=== PATIENT | male | born 1955 | race American Indian/Alaskan Native ===

== ENCOUNTER 2020-10-18 00:42 | Observation (INO) | payer MEDICARE ==
--- NOTE | 2020-10-18 01:32 | Emergency Department Report ---
ED General Adult HPI - General Chief complaint: Dyspnea/Respdistress Stated complaint: FLU SYMTOMS PUI?: Yes Time Seen by Provider: 10/18/20 01:11 Source: patient, EMS Mode of arrival: Stretcher Limitations: No Limitations - History of Present Illness Initial comments: Patient is a 64-year-old male that presents emergency room with complaints of fever, cough, fatigue. Patient states his symptoms started 2 days ago. Patient dates his symptoms are worsening. Patient denies shortness of breath and chest pain. Patient denies nausea vomiting and diarrhea. Patient states he has not been tested for Covid 19. Patient denies recent travel. Patient denies recent international travel. Patient denies exposure to the novel coronavirus. Patient denies sick contacts. Patient denies diarrhea. Patient denies coming in contact with anybody with symptoms of the novel coronavirus. -: Sudden Consistency: constant Improves with: rest Worsens with: movement Associated Symptoms: confusion, cough, fever/chills, malaise. denies: headaches, loss of appetite, nausea/vomiting, rash, seizure, shortness of breath, syncope, weakness Treatments Prior to Arrival: none - Related Data Previous Rx's Medication Instructions Recorded Last Taken Type Apixaban [Eliquis] 5 mg PO Q12HR #60 tablet 07/31/16 Unknown Rx Aspirin EC [Halfprin EC] 81 mg PO QDAY #30 tablet 07/31/16 Unknown Rx Detemir (Nf) [Levemir (Nf)] 33 units SUB-Q QHS 30 Days units 07/31/16 Unknown Rx Famotidine [Pepcid] 20 mg PO BID #60 tablet 07/31/16 Unknown Rx Insulin Aspart (Nf) [NovoLOG 25 units SQ AC 30 Days pen 07/31/16 Unknown Rx Flexpen] Losartan/Hydrochlorothiazide 100 mg PO QDAY #30 tablet 07/31/16 Unknown Rx [Hyzaar 100-25 TAB] Mirtazapine [Remeron 15mg TAB] 15 mg PO QHS #30 tablet 07/31/16 Unknown Rx Simvastatin (Nf) [Zocor TAB] 20 mg PO QHS #30 tablet 07/31/16 Unknown Rx amLODIPine 10 mg PO QDAY #30 tablet 07/31/16 Unknown Rx cloNIDine [Catapres] 0.1 mg PO QHS PRN #30 tablet 07/31/16 Unknown Rx metFORMIN XR [Glucophage XR] 1,000 mg PO BIDDIAB #60 tablet 07/31/16 Unknown Rx Allergies Allergy/AdvReac Type Severity Reaction Status Date / Time metronidazole [From Flagyl] Allergy Swelling Verified 01/28/14 16:16 ED Review of Systems ROS: Stated complaint: FLU SYMTOMS Other details as noted in HPI Constitutional: chills, fever, malaise Eyes: denies: eye pain, eye discharge, vision change ENT: denies: ear pain, throat pain Respiratory: cough. denies: shortness of breath, wheezing Cardiovascular: denies: chest pain, palpitations Endocrine: no symptoms reported Gastrointestinal: denies: abdominal pain, nausea, diarrhea Genitourinary: denies: urgency, dysuria Musculoskeletal: denies: back pain, joint swelling, arthralgia Skin: denies: rash, lesions Neurological: denies: headache, weakness, paresthesias Psychiatric: denies: anxiety, depression Hematological/Lymphatic: denies: easy bleeding, easy bruising ED Past Medical Hx - Past Medical History Previous Medical History?: Yes Hx Hypertension: Yes Hx CVA: Yes (2012 (slow speech, weakness to both sides left facial/LUE numbness)) Hx Heart Attack/AMI: No Hx Congestive Heart Failure: Yes Hx Diabetes: Yes Hx Liver Disease: No Hx Renal Disease: No Hx Sickle Cell Disease: No Hx Arthritis: Yes Hx Seizures: No Hx Asthma: No Hx COPD: Yes Hx HIV: No Additional medical history: AF on Prodaxa. CHARISMA - Surgical History Past Surgical History?: Yes Hx Pacemaker: No Additional Surgical History: Knee surgery - Family History Family history: no significant - Social History Smoking Status: Never Smoker Substance Use Type: None - Medications Home Medications: Home Medications Medication Instructions Recorded Confirmed Last Taken Type Apixaban [Eliquis] 5 mg PO Q12HR #60 tablet 07/31/16 Unknown Rx Aspirin EC [Halfprin EC] 81 mg PO QDAY #30 tablet 07/31/16 Unknown Rx Detemir (Nf) [Levemir (Nf)] 33 units SUB-Q QHS 30 Days units 07/31/16 Unknown Rx Famotidine [Pepcid] 20 mg PO BID #60 tablet 07/31/16 Unknown Rx Insulin Aspart (Nf) [NovoLOG 25 units SQ AC 30 Days pen 07/31/16 Unknown Rx Flexpen] Losartan/Hydrochlorothiazide 100 mg PO QDAY #30 tablet 07/31/16 Unknown Rx [Hyzaar 100-25 TAB] Mirtazapine [Remeron 15mg TAB] 15 mg PO QHS #30 tablet 07/31/16 Unknown Rx Simvastatin (Nf) [Zocor TAB] 20 mg PO QHS #30 tablet 07/31/16 Unknown Rx amLODIPine 10 mg PO QDAY #30 tablet 07/31/16 Unknown Rx cloNIDine [Catapres] 0.1 mg PO QHS PRN #30 tablet 07/31/16 Unknown Rx metFORMIN XR [Glucophage XR] 1,000 mg PO BIDDIAB #60 tablet 07/31/16 Unknown Rx ED Physical Exam - General Limitations: No Limitations General appearance: alert, in no apparent distress - Head Head exam: Present: atraumatic, normocephalic - Eye Eye exam: Present: normal appearance - ENT ENT exam: Present: mucous membranes moist - Neck Neck exam: Present: normal inspection - Respiratory Respiratory exam: Present: decreased breath sounds. Absent: respiratory distress - Cardiovascular Cardiovascular Exam: Present: regular rate, normal rhythm. Absent: systolic murmur, diastolic murmur, rubs, gallop - GI/Abdominal GI/Abdominal exam: Present: soft, normal bowel sounds - Rectal Rectal exam: Present: deferred - Extremities Exam Extremities exam: Present: normal inspection - Back Exam Back exam: Present: normal inspection - Neurological Exam Neurological exam: Present: alert, oriented X3 - Psychiatric Psychiatric exam: Present: normal affect, normal mood - Skin Skin exam: Present: warm, dry, intact, normal color. Absent: rash ED Course Vital Signs 10/18/20 10/18/20 10/18/20 01:16 01:27 03:32 Temperature 98.9 F Pulse Rate 89 78 Respiratory 10 L 16 14 Rate Blood Pressure 131/53 Blood Pressure 129/42 [Right] O2 Sat by Pulse 94 95 94 Oximetry - Reevaluation(s) Reevaluation #1: Patient was hypoxic during ambulation to the room. Patient was placed on oxygen by the nursing staff. Patient's oxygen at 2 L and is 95%. 10/18/20 01:15 Reevaluation #2: Patient still oxygen dependent. I discussed all results with patient. I discussed plan of care with patient. Patient agrees with plan of care and admission. Patient to be admitted to the hospitalist service. 10/18/20 03:03 - Consultations Consultation #1: Hospitalist consulted for admission. Hospitalist to admit patient. 10/18/20 03:03 ED Medical Decision Making - Lab Data Result diagrams: 10/18/20 01:51 10/18/20 03:09 - Radiology Data Radiology results: report reviewed, image reviewed interpreted by me: Chest x-ray: Bilateral pneumonia, no pneumothorax, no foreign body, no osseous findings, - Medical Decision Making Patient is a 65-year-old male that presents emergency room for fever and cough. Patient has not been tested for Covid. Patient had labs done which were exacerbated acute renal failure and elevated WBC. Patient had a chest x-ray which was read as normal by the radiologist but in my review, I believe the patient has bilateral viral pneumonia. Patient given IV fluids 500 cc bolus for renal failure. Patient unable to receive large quantities of fluid due to his history of CHF. Patient does not have a kidney history. Patient also given Rocephin and Zithromax and Decadron for pneumonia. Patient admitted to the hospital service for further evaluation treatment. Prior to initial evaluation, the patient was found to be hypoxic during his ambulation to the room and the nursing staff placed him on 2 L of oxygen. Patient is 95% on 2 L. ID consulted. Patient had a Covid panel ordered at the hospital follow-up on results. - Differential Diagnosis PUI, Covid, pneumonia, URI, cough, fever Critical Care Time: Yes Critical care time in (mins) excluding proc time.: 35 Critical care attestation.: If time is entered above; I have spent that time in minutes in the direct care of this critically ill patient, excluding procedure time. Critical Care Time: 35 minutes ED Disposition Clinical Impression: Person under investigation for COVID-19, Cough, Hyperglycemia Acute renal failure (ARF) Qualifiers: Acute renal failure type: unspecified Qualified Code(s): N17.9 - Acute kidney failure, unspecified Pneumonia Qualifiers: Pneumonia type: due to unspecified organism Laterality: bilateral Lung location: unspecified part of lung Qualified Code(s): J18.9 - Pneumonia, unspecified organism Fever Qualifiers: Fever type: unspecified Qualified Code(s): R50.9 - Fever, unspecified Leukocytosis Qualifiers: Leukocytosis type: unspecified Qualified Code(s): D72.829 - Elevated white blood cell count, unspecified Respiratory failure Qualifiers: Chronicity: acute Respiratory failure complication: hypoxia Qualified Code(s): J96.01 - Acute respiratory failure with hypoxia Disposition: 09 OP ADMIT IP TO THIS HOSP Is pt being admited?: Yes Does the pt Need Aspirin: No Condition: Critical Time of Disposition: 02:59
--- NOTE | 2020-10-18 02:20 | XRay Report ---
CHEST 1 VIEW 10/18/2020 1:11 AM INDICATION / CLINICAL INFORMATION: cough. COMPARISON: None available. FINDINGS: SUPPORT DEVICES: None. HEART / MEDIASTINUM: No significant abnormality. LUNGS / PLEURA: Suboptimal inspiratory effort with linear bibasilar parenchymal disease likely second marixa to atelectasis. No pneumothorax. ADDITIONAL FINDINGS: No significant additional findings. IMPRESSION: 1. No acute findings. Signer Name: Logan Dubose MD Signed: 10/18/2020 2:15 AM Workstation Name: [id number]
[2020-10-18 02:25] LABS: Albumin 3.2 g/dL (3.9-5); Calcium 8.7 mg/dL (8.4-10.2)
[2020-10-18 02:49] LABS: Basophils % (Auto) 0.2 % (0.0-1.8); Eosinophils # (Auto) 0.2 K/mm3 (0.0-0.4); Eosinophils % (Auto) 1.3 % (0.0-4.3); Hematocrit 31.9 % (35.5-45.6); Hemoglobin 10.6 gm/dl (11.8-15.2); Lymphocytes # (Auto) 2.1 K/mm3 (1.2-5.4); Lymphocytes % (Auto) 15.9 % (13.4-35.0); Mean Corpuscular HGB Conc 33 % (32-34); Mean Corpuscular Volume 82 fl (84-94); Monocytes # (Auto) 1.6 K/mm3 (0.0-0.8); Monocytes % (Auto) 12.4 % (0.0-7.3); Platelet Count 264 K/mm3 (140-440); Red Blood Count 3.92 M/mm3 (3.65-5.03); Red Cell Distribution Width 16.6 % (13.2-15.2)
[2020-10-18] MEDS ORDERED: cefTRIAXone/NS 2 GM/100 ML 2 GM/100 ML BAG IV ONE (03:00)
[2020-10-18] MEDS ORDERED: dexAMETHasone 4 MG/ML VIAL IV ONE (03:00)
[2020-10-18] MEDS ORDERED: SODIUM CHLORIDE 0.9% 500 ML 500 ML IV ONE (03:00)
[2020-10-18] MEDS ORDERED: AZITHROMYCIN/NS 500 MG/250 ML 500 MG/250 ML BAG IV SCH (03:00)
[2020-10-18 04:12] LABS: C-Reactive Protein 31.1 mg/dL (0.00-1.30)
[2020-10-18] MEDS ORDERED: MAGNESIUM HYDROXIDE (MOM) ORAL LIQD UDC PO PRN (04:38)
[2020-10-18] MEDS ORDERED: MORPHINE 2 MG/1 ML INJ IV PRN (04:38)
[2020-10-18] MEDS ORDERED: ONDANSETRON 4 MG/2 ML INJ IV PRN (04:38)
[2020-10-18] MEDS ORDERED: ACETAMINOPHEN 325 MG TAB PO PRN (04:38)
[2020-10-18] MEDS ORDERED: DEXTROSE 50% IN WATER (25GM) 50 ML SYRINGE IV PRN (04:38)
[2020-10-18] MEDS ORDERED: SODIUM CHLORIDE 0.9% 1000 ML 1,000 ML IV SCH (04:45)
--- NOTE | 2020-10-18 04:47 | History and Physical Report ---
History of Present Illness Date of examination: 10/18/20 Date of admission: 10/18/20 03:00 Chief complaint: Fever Cough History of present illness: 64-year-old male presented to the emergency room today complaining of cough, fatigue and fever which has been ongoing for about 2 days. Cough has not been productive, denies any chest pain, no headache or dizziness. Patient denies any sick contacts and no recent travel. He denies any contact with anyone with COVID-19. Work-up in the emergency room today reveals a leukocytosis of 13.0, elevated BUN and creatinine and chest x-ray reveals:: Suboptimal inspiratory effort with linear bibasilar parenchymal disease likely secondary to atelectasis. Patient is being admitted for possible pneumonia with Covid and acute renal failure. Past History Past Medical History: atrial fib, arthritis, COPD, diabetes, heart failure, stroke Past Surgical History: Other (Knee surgery) Social history: no significant social history Family history: no significant family history Medications and Allergies Allergies Allergy/AdvReac Type Severity Reaction Status Date / Time metronidazole [From Flagyl] Allergy Swelling Verified 01/28/14 16:16 Home Medications Medication Instructions Recorded Confirmed Last Taken Type Apixaban [Eliquis] 5 mg PO Q12HR #60 tablet 07/31/16 Unknown Rx Aspirin EC [Halfprin EC] 81 mg PO QDAY #30 tablet 07/31/16 Unknown Rx Detemir (Nf) [Levemir (Nf)] 33 units SUB-Q QHS 30 Days units 07/31/16 Unknown Rx Famotidine [Pepcid] 20 mg PO BID #60 tablet 07/31/16 Unknown Rx Insulin Aspart (Nf) [NovoLOG 25 units SQ AC 30 Days pen 07/31/16 Unknown Rx Flexpen] Losartan/Hydrochlorothiazide 100 mg PO QDAY #30 tablet 07/31/16 Unknown Rx [Hyzaar 100-25 TAB] Mirtazapine [Remeron 15mg TAB] 15 mg PO QHS #30 tablet 07/31/16 Unknown Rx Simvastatin (Nf) [Zocor TAB] 20 mg PO QHS #30 tablet 07/31/16 Unknown Rx amLODIPine 10 mg PO QDAY #30 tablet 07/31/16 Unknown Rx cloNIDine [Catapres] 0.1 mg PO QHS PRN #30 tablet 07/31/16 Unknown Rx metFORMIN XR [Glucophage XR] 1,000 mg PO BIDDIAB #60 tablet 07/31/16 Unknown Rx Active Meds: Active Medications Azithromycin (Zithromax/Ns) 500 mg in 250 mls @ 250 mls/hr IV Q24HR [facility] Last Admin: 10/18/20 04:28 Dose: 250 mls/hr Documented by: Review of Systems Constitutional: fever, chills, no lethargy Ears, nose, mouth and throat: no nasal congestion, no sore throat Cardiovascular: no chest pain, no palpitations Respiratory: cough, shortness of breath, no wheezing Gastrointestinal: no abdominal pain, no nausea, no vomiting, no diarrhea Genitourinary Male: no dysuria, no hematuria, no nocturia Musculoskeletal: no neck pain, no low back pain Integumentary: no rash, no pruritis Neurological: no headaches, no confusion Psychiatric: no anxiety, no depression Exam - Constitutional Vitals: Temp Pulse Resp BP Pulse Ox 98.9 F 78 14 129/42 94 10/18/20 01:16 10/18/20 03:32 10/18/20 03:32 10/18/20 03:32 10/18/20 03:32 General appearance: Present: no acute distress, well-nourished, obese - EENT Eyes: Present: PERRL, EOM intact. Absent: scleral icterus ENT: hearing intact, clear oral mucosa, dentition normal - Neck Neck: Present: supple, normal ROM - Respiratory Respiratory effort: normal Respiratory: bilateral: diminished - Cardiovascular Rhythm: regular Heart Sounds: Present: S1 & S2. Absent: gallop, systolic murmur, diastolic murmur, rub, click - Extremities Extremities: no ischemia, pulses intact, pulses symmetrical, No edema, normal temperature, normal color, Full ROM Peripheral Pulses: within normal limits - Abdominal General gastrointestinal: Present: soft, non-tender, non-distended, normal bowel sounds. Absent: mass - Integumentary Integumentary: Present: clear, warm, dry. Absent: rash - Musculoskeletal Musculoskeletal: strength equal bilaterally - Psychiatric Psychiatric: appropriate mood/affect, intact judgment & insight, memory intact, cooperative - Neurologic Neurologic: CNII-XII intact, no focal deficits, moves all extremities Results - Labs CBC & Chem 7: 10/18/20 01:51 10/18/20 03:09 Labs: Abnormal lab results 02/19/21 02/19/21 02/19/21 Range/Units 01:51 01:51 03:09 WBC 13.0 H (4.5-11.0) K/mm3 Hgb 10.6 L (11.8-15.2) gm/dl Hct 31.9 L (35.5-45.6) % MCV 82 L (84-94) fl MCH 27 L (28-32) pg RDW 16.6 H (13.2-15.2) % Steele % (Auto) 12.4 H (0.0-7.3) % Steele # (Auto) 1.6 H (0.0-0.8) K/mm3 Seg Neutrophils % 70.2 H (40.0-70.0) % Seg Neutrophils # 9.1 H (1.8-7.7) K/mm3 D-Dimer 545.23 H (0-234) ng/mlDDU Sodium 136 L (137-145) mmol/L BUN 24 H (9-20) mg/dL Creatinine 1.9 H (0.8-1.3) mg/dL Glucose 225 H (75-100) mg/dL Lactate Dehydrogenase (91-180) units/L C-Reactive Protein (0.00-1.30) mg/dL Albumin 3.2 L (3.9-5) g/dL 10/18/20 Range/Units 03:09 WBC (4.5-11.0) K/mm3 Hgb (11.8-15.2) gm/dl Hct (35.5-45.6) % MCV (84-94) fl MCH (28-32) pg RDW (13.2-15.2) % Steele % (Auto) (0.0-7.3) % Steele # (Auto) (0.0-0.8) K/mm3 Seg Neutrophils % (40.0-70.0) % Seg Neutrophils # (1.8-7.7) K/mm3 D-Dimer (0-234) ng/mlDDU Sodium (137-145) mmol/L BUN (9-20) mg/dL Creatinine (0.8-1.3) mg/dL Glucose 223 H (75-100) mg/dL Lactate Dehydrogenase 223 H (91-180) units/L C-Reactive Protein 31.10 H (0.00-1.30) mg/dL Albumin (3.9-5) g/dL Assessment and Plan - Patient Problems (1) Pneumonia Current Visit: Yes Status: Acute Qualifiers: Pneumonia type: due to unspecified organism Laterality: bilateral Lung location: unspecified part of lung Qualified Code(s): J18.9 - Pneumonia, unspecified organism Plan to address problem: Patient placed on empiric IV antibiotics. We await culture results. (2) Person under investigation for COVID-19 Current Visit: Yes Status: Acute Plan to address problem: Patient placed on isolation precautions. We await COVID-19 testing. Consult placed to infectious disease for evaluation. 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 (5) HTN (hypertension) Current Visit: No Status: Chronic Qualifiers: Hypertension type: essential hypertension Qualified Code(s): I10 - Essential (primary) hypertension Plan to address problem: We will resume routine home medications and monitor vital signs closely. (6) Morbid obesity Current Visit: No Status: Chronic Plan to address problem: Dietary consult placed. Lifestyle modification encouraged. (7) Acute renal failure (ARF) Current Visit: Yes Status: Acute Qualifiers: Acute renal failure type: unspecified Qualified Code(s): N17.9 - Acute kidney failure, unspecified Plan to address problem: Patient placed on IV fluid. Will place consult to nephrology for evaluation. (8) DVT prophylaxis Current Visit: No Status: Acute Plan to address problem: Patient on anticoagulation. (9) Full code status Current Visit: Yes Status: Acute Plan to address problem: Patient is full code.
[2020-10-18] MEDS ORDERED: cloNIDine 0.1 MG TAB PO PRN (05:32)
[2020-10-18] MEDS: INSULIN LISPRO 100 UNIT/ML SUB-Q SCH ×4 (08:56→23:09)
[2020-10-18] MEDS: ASPIRIN EC 81 MG TAB PO SCH (09:00)
[2020-10-18] MEDS: LOSARTAN 50 MG TAB PO SCH (09:00)
[2020-10-18] MEDS: FAMOTIDINE 20 MG TAB PO SCH ×2 (09:00→21:42)
[2020-10-18] MEDS: hydroCHLOROthiazide 25 MG TAB PO SCH (09:00)
[2020-10-18] MEDS: APIXABAN 5 MG TAB PO SCH ×2 (09:00→21:42)
[2020-10-18] MEDS: amLODIPine 10 MG TAB PO SCH (09:00)
--- NOTE | 2020-10-18 09:35 | Consultation ---
History of Present Illness - Reason for Consult Consult date: 10/18/20 acute renal failure - History of Present Illness The patient is a 64 YO male with history significant for Morbid obesity, DM type 2, Atrial fib, Arthritis, COPD, CVA and CHF who presented to [facility] ED 10/18 complaining of cough, fatigue and fever for the past 2 days. Cough has been non-productive. He denies any chest pain, sob, N, V, D, abd pain, headache, dizziness, sick contacts or any contact with anyone with COVID-19. Work-up in the emergency room revealed wbc of 13.0, BUN 24 and creatinine 1.9. CXR showed: Suboptimal inspiratory effort with linear bibasilar parenchymal disease likely secondary to atelectasis. Patient was admitted for possible pneumonia 2/2 Covid and acute renal failure. Nephrology was consulted for evaluation and treatment of ABHISHEK. Past History Past Medical History: atrial fib, arthritis, COPD, diabetes, heart failure, stroke Past Surgical History: Other (Knee surgery) Social history: no significant social history Family history: no significant family history Medications and Allergies Allergies Allergy/AdvReac Type Severity Reaction Status Date / Time metronidazole [From Flagyl] Allergy Swelling Verified 01/28/14 16:16 Home Medications Medication Instructions Recorded Confirmed Last Taken Type Apixaban [Eliquis] 5 mg PO Q12HR #60 tablet 07/31/16 10/18/20 Unknown Rx Aspirin EC [Halfprin EC] 81 mg PO QDAY #30 tablet 07/31/16 10/18/20 Unknown Rx Detemir (Nf) [Levemir (Nf)] 33 units SUB-Q QHS 30 Days units 07/31/16 10/18/20 Unknown Rx Famotidine [Pepcid] 20 mg PO BID #60 tablet 07/31/16 10/18/20 Unknown Rx Insulin Aspart (Nf) [NovoLOG 25 units SQ AC 30 Days pen 07/31/16 10/18/20 Unknown Rx Flexpen] Losartan/Hydrochlorothiazide 100 mg PO QDAY #30 tablet 07/31/16 10/18/20 Unknown Rx [Hyzaar 100-25 TAB] Mirtazapine [Remeron 15mg TAB] 15 mg PO QHS #30 tablet 07/31/16 10/18/20 Unknown Rx Simvastatin (Nf) [Zocor TAB] 20 mg PO QHS #30 tablet 07/31/16 10/18/20 Unknown Rx amLODIPine 10 mg PO QDAY #30 tablet 07/31/16 10/18/20 Unknown Rx cloNIDine [Catapres] 0.1 mg PO QHS PRN #30 tablet 07/31/16 10/18/20 Unknown Rx metFORMIN XR [Glucophage XR] 1,000 mg PO BIDDIAB #60 tablet 07/31/16 10/18/20 Unknown Rx Active Meds: Active Medications Acetaminophen (Acetaminophen 325 Mg Tab) 650 mg PO Q4H PRN PRN Reason: Pain MILD(1-3)/Fever >100.5/IBRAHIM Amlodipine Besylate (Amlodipine 10 Mg Tab) 10 mg PO QDAY [facility] Last Admin: 10/18/20 09:00 Dose: 10 mg Documented by: Apixaban (Apixaban 5 Mg Tab) 5 mg PO Q12HR [facility]; Protocol Last Admin: 10/18/20 09:00 Dose: 5 mg Documented by: Aspirin (Aspirin Ec 81 Mg Tab) 81 mg PO QDAY [facility] Last Admin: 10/18/20 09:00 Dose: 81 mg Documented by: Azithromycin (Azithromycin 250 Mg Tab) 500 mg PO QHS [facility] Stop: 10/21/20 22:01 Clonidine HCl (Clonidine 0.1 Mg Tab) 0.1 mg PO QHS PRN PRN Reason: Hypertension Dextrose (Dextrose 50% In Water (25gm) 50 Ml Syringe) 0 ml IV Q30MIN PRN; Protocol PRN Reason: Hypoglycemia Famotidine (Famotidine 20 Mg Tab) 20 mg PO BID [facility] Last Admin: 10/18/20 09:00 Dose: 20 mg Documented by: Hydrochlorothiazide (Hydrochlorothiazide 25 Mg Tab) 25 mg PO QDAY [facility] Last Admin: 10/18/20 09:00 Dose: 25 mg Documented by: Sodium Chloride (Nacl 0.9% 1000 Ml) 1,000 mls @ 75 mls/hr IV DIRECT [facility] Ceftriaxone Sodium (Rocephin/Ns 2 Gm/100 Ml) 2 gm in 100 mls @ 200 mls/hr IV Q24HR@2200 [facility]; Protocol Insulin Human Lispro (Insulin Lispro 100 Unit/Ml) 0 unit SUB-Q ACHS [facility]; Protocol Last Admin: 10/18/20 08:56 Dose: 4 unit Documented by: Losartan Potassium (Losartan 50 Mg Tab) 100 mg PO QDAY [facility] Last Admin: 10/18/20 09:00 Dose: 100 mg Documented by: Magnesium Hydroxide (Magnesium Hydroxide (Mom) Oral Liqd Udc) 30 ml PO Q4H PRN PRN Reason: Constipation Mirtazapine (Mirtazapine 15 Mg Tab) 15 mg PO QHS [facility] Morphine Sulfate (Morphine 2 Mg/1 Ml Inj) 2 mg IV Q4H PRN PRN Reason: Pain, Moderate (4-6) Ondansetron HCl (Ondansetron 4 Mg/2 Ml Inj) 4 mg IV Q8H PRN PRN Reason: Nausea And Vomiting Sodium Chloride (Sodium Chloride 0.9% 10 Ml Flush Syringe) 10 ml IV BID [facility] Last Admin: 10/18/20 09:01 Dose: 10 ml Documented by: Sodium Chloride (Sodium Chloride 0.9% 10 Ml Flush Syringe) 10 ml IV PRN PRN PRN Reason: LINE FLUSH Review of Systems Constitutional: fever, chills, anorexia, no weight loss, no weight gain, no fatigue, no weakness Cardiovascular: high blood pressure, no chest pain, no orthopnea, no edema, no syncope, no lightheadedness, no shortness of breath, no leg edema Respiratory: cough, no cough with sputum, no hemoptysis, no shortness of breath, no dyspnea on exertion Gastrointestinal: no abdominal pain, no nausea, no vomiting, no diarrhea, no melena Genitourinary Male: no dysuria, no hematuria Rectal: no bleeding Integumentary: no rash, no wounds Neurological: no change in speech, no change in mentation, no confusion Exam - Vital Signs Vital signs: Vital Signs Temp Pulse Resp BP Pulse Ox 98.9 F 89 10 L 131/53 94 10/18/20 01:16 10/18/20 01:16 10/18/20 01:16 10/18/20 01:16 10/18/20 01:16 Results - Lab Results 10/18/20 01:51 10/18/20 03:09 Most recent lab results Calcium 8.7 mg/dL (8.4-10.2) 10/18/20 01:51 Assessment and Plan 1. Acute kidney injury: Suspect vasomotor vasomotor ABHISHEK. Renal US and Urine studies ordered. Baseline renal function is unknown. Suspect background CKD. Monitor renal function. Avoid nephrotoxic agents. Meds dosage based on GFR. 2. FEN: Monitor volume status and lytes. 3. Resp symptoms: Admitted with dry cough. CXR negative for PNA. COVID test negative. Abx. Follow cultures. 4. H/o COPD: Monitor. 5. H/o CHF: Unknown EF. Monitor. 6. DM type 2: Monitor blood glucose. 7. A.fib: Rate controlled. On Eliquis. Subjective: Patient was seen and examined at the bedside. Examination: General appearance: well-developed, appears stated age, obese HEENT: ATNC, Pupils equal Neck: Trachea midline Respiratory: ctab Cardiology: regular, S1S2, no murmur Gastrointestinal: obese, normoactive bowel sounds, not tender, not distended Integumentary: warm and dry, no obvious rash Neurologic: AO, conversing moving extremities Ext: no edema
[2020-10-18] MEDS ORDERED: LOSARTAN PO SCH (10:00)
[2020-10-18] MEDS ORDERED: HYDROCHLOROTHIAZIDE PO SCH (10:00)
--- NOTE | 2020-10-18 12:13 | Consultation ---
History of Present Illness - Reason for Consult Consult date: 10/18/20 - History of Present Illness 64 yo M PMHx afib, COPD, DM2, CHF presented to the ER complaining of cough, fevers, SOB. This began 2 days prior to admission and was not associated with any other symptoms. He denies any known COVID-19 contacts. Afebrile since admission with an elevated white count of 13. GFR is 44. Covid testing pending. Procalcitonin pending. Imaging personally reviewed: Chest x-ray: No acute findings. Review of systems: Deferred to PPE conservation strategy. Past History Past Medical History: atrial fib, arthritis, COPD, diabetes, heart failure, stroke Past Surgical History: Other (Knee surgery) Social history: no significant social history Family history: no significant family history Medications and Allergies Allergies Allergy/AdvReac Type Severity Reaction Status Date / Time metronidazole [From Flagyl] Allergy Swelling Verified 01/28/14 16:16 Home Medications Medication Instructions Recorded Confirmed Last Taken Type Apixaban [Eliquis] 5 mg PO Q12HR #60 tablet 07/31/16 Unknown Rx Aspirin EC [Halfprin EC] 81 mg PO QDAY #30 tablet 07/31/16 Unknown Rx Detemir (Nf) [Levemir (Nf)] 33 units SUB-Q QHS 30 Days units 07/31/16 Unknown Rx Famotidine [Pepcid] 20 mg PO BID #60 tablet 07/31/16 Unknown Rx Insulin Aspart (Nf) [NovoLOG 25 units SQ AC 30 Days pen 07/31/16 Unknown Rx Flexpen] Losartan/Hydrochlorothiazide 100 mg PO QDAY #30 tablet 07/31/16 Unknown Rx [Hyzaar 100-25 TAB] Mirtazapine [Remeron 15mg TAB] 15 mg PO QHS #30 tablet 07/31/16 Unknown Rx Simvastatin (Nf) [Zocor TAB] 20 mg PO QHS #30 tablet 07/31/16 Unknown Rx amLODIPine 10 mg PO QDAY #30 tablet 07/31/16 Unknown Rx cloNIDine [Catapres] 0.1 mg PO QHS PRN #30 tablet 07/31/16 Unknown Rx metFORMIN XR [Glucophage XR] 1,000 mg PO BIDDIAB #60 tablet 07/31/16 Unknown Rx Active Meds: Active Medications Acetaminophen (Acetaminophen 325 Mg Tab) 650 mg PO Q4H PRN PRN Reason: Pain MILD(1-3)/Fever >100.5/IBRAHIM Amlodipine Besylate (Amlodipine 10 Mg Tab) 10 mg PO QDAY [facility] Last Admin: 10/18/20 09:00 Dose: 10 mg Documented by: Apixaban (Apixaban 5 Mg Tab) 5 mg PO Q12HR [facility]; Protocol Last Admin: 10/18/20 09:00 Dose: 5 mg Documented by: Aspirin (Aspirin Ec 81 Mg Tab) 81 mg PO QDAY [facility] Last Admin: 10/18/20 09:00 Dose: 81 mg Documented by: Azithromycin (Azithromycin 250 Mg Tab) 500 mg PO QHS [facility] Stop: 10/21/20 22:01 Clonidine HCl (Clonidine 0.1 Mg Tab) 0.1 mg PO QHS PRN PRN Reason: Hypertension Dextrose (Dextrose 50% In Water (25gm) 50 Ml Syringe) 0 ml IV Q30MIN PRN; Protocol PRN Reason: Hypoglycemia Famotidine (Famotidine 20 Mg Tab) 20 mg PO BID [facility] Last Admin: 10/18/20 09:00 Dose: 20 mg Documented by: Hydrochlorothiazide (Hydrochlorothiazide 25 Mg Tab) 25 mg PO QDAY [facility] Last Admin: 10/18/20 09:00 Dose: 25 mg Documented by: Sodium Chloride (Nacl 0.9% 1000 Ml) 1,000 mls @ 75 mls/hr IV DIRECT DILLAN Ceftriaxone Sodium (Rocephin/Ns 2 Gm/100 Ml) 2 gm in 100 mls @ 200 mls/hr IV Q24HR@2200 [facility]; Protocol Insulin Human Lispro (Insulin Lispro 100 Unit/Ml) 0 unit SUB-Q ACHS [facility]; Protocol Last Admin: 10/18/20 08:56 Dose: 4 unit Documented by: Losartan Potassium (Losartan 50 Mg Tab) 100 mg PO QDAY [facility] Last Admin: 10/18/20 09:00 Dose: 100 mg Documented by: Magnesium Hydroxide (Magnesium Hydroxide (Mom) Oral Liqd Udc) 30 ml PO Q4H PRN PRN Reason: Constipation Mirtazapine (Mirtazapine 15 Mg Tab) 15 mg PO QHS [facility] Morphine Sulfate (Morphine 2 Mg/1 Ml Inj) 2 mg IV Q4H PRN PRN Reason: Pain, Moderate (4-6) Ondansetron HCl (Ondansetron 4 Mg/2 Ml Inj) 4 mg IV Q8H PRN PRN Reason: Nausea And Vomiting Sodium Chloride (Sodium Chloride 0.9% 10 Ml Flush Syringe) 10 ml IV BID DILLAN Last Admin: 10/18/20 09:01 Dose: 10 ml Documented by: Sodium Chloride (Sodium Chloride 0.9% 10 Ml Flush Syringe) 10 ml IV PRN PRN PRN Reason: LINE FLUSH Physical Examination - Physical Exam Narrative exam: Physical exam deferred due to PPE conservation strategy. Please refer to primary team's note. - Constitutional Vitals: Vital Signs Temp Pulse Resp BP Pulse Ox 98.4 F 82 17 145/77 92 10/18/20 05:59 10/18/20 05:53 10/18/20 05:59 10/18/20 05:53 10/18/20 05:53 Temperature -Last 24 Hours Temperature 98.4 F Temperature 98.4 F Temperature 98.9 F Results - Labs CBC & Chem 7: 10/18/20 01:51 10/18/20 03:09 Labs: Abnormal lab results 10/18/20 10/18/20 10/18/20 Range/Units 01:51 01:51 03:09 WBC 13.0 H (4.5-11.0) K/mm3 Hgb 10.6 L (11.8-15.2) gm/dl Hct 31.9 L (35.5-45.6) % MCV 82 L (84-94) fl MCH 27 L (28-32) pg RDW 16.6 H (13.2-15.2) % [place] % (Auto) 12.4 H (0.0-7.3) % [place] # (Auto) 1.6 H (0.0-0.8) K/mm3 Seg Neutrophils % 70.2 H (40.0-70.0) % Seg Neutrophils # 9.1 H (1.8-7.7) K/mm3 D-Dimer 545.23 H (0-234) ng/mlDDU Sodium 136 L (137-145) mmol/L BUN 24 H (9-20) mg/dL Creatinine 1.9 H (0.8-1.3) mg/dL Glucose 225 H (75-100) mg/dL POC Glucose (70-105) mg/dL Lactate Dehydrogenase (91-180) units/L C-Reactive Protein (0.00-1.30) mg/dL Albumin 3.2 L (3.9-5) g/dL 10/18/20 10/18/20 10/18/20 Range/Units 03:09 05:56 07:51 WBC (4.5-11.0) K/mm3 Hgb (11.8-15.2) gm/dl Hct (35.5-45.6) % MCV (84-94) fl MCH (28-32) pg RDW (13.2-15.2) % [place] % (Auto) (0.0-7.3) % [place] # (Auto) (0.0-0.8) K/mm3 Seg Neutrophils % (40.0-70.0) % Seg Neutrophils # (1.8-7.7) K/mm3 D-Dimer (0-234) ng/mlDDU Sodium (137-145) mmol/L BUN (9-20) mg/dL Creatinine (0.8-1.3) mg/dL Glucose 223 H (75-100) mg/dL POC Glucose 213 H 251 H (70-105) mg/dL Lactate Dehydrogenase 223 H (91-180) units/L C-Reactive Protein 31.10 H (0.00-1.30) mg/dL Albumin (3.9-5) g/dL 10/18/20 Range/Units 11:10 WBC (4.5-11.0) K/mm3 Hgb (11.8-15.2) gm/dl Hct (35.5-45.6) % MCV (84-94) fl MCH (28-32) pg RDW (13.2-15.2) % [place] % (Auto) (0.0-7.3) % [place] # (Auto) (0.0-0.8) K/mm3 Seg Neutrophils % (40.0-70.0) % Seg Neutrophils # (1.8-7.7) K/mm3 D-Dimer (0-234) ng/mlDDU Sodium (137-145) mmol/L BUN (9-20) mg/dL Creatinine (0.8-1.3) mg/dL Glucose (75-100) mg/dL POC Glucose 358 H (70-105) mg/dL Lactate Dehydrogenase (91-180) units/L C-Reactive Protein (0.00-1.30) mg/dL Albumin (3.9-5) g/dL Assessment and Plan Cultures: None COVID-19 pending A/P: 64 yo M PMHx afib, COPD, DM2, CHF admitted as COVID PUI #COVID-19 PUI: No PNA seen on exam, however consistent symptoms. Awaiting testing. #Diabetes: tight glycemic control for best outcomes. #COPD: If Covid negative, possible COPD exacerbation. #CHF Recs: -Follow-up Covid testing -Continue ceftriaxone 2 gm IV qday and azithromycin 500 mg PO qday, if procalcitonin <0.25 ng/mL stop antibiotics -If Covid positive and requiring oxygen would start remdesivir and dexa methasone. Thank you for the consult, we will continue to follow. Marie Vaughn MD [facility] ([facility]) O: [phone] F: [phone]
--- NOTE | 2020-10-18 16:50 | Progress Note ---
Assessment and Plan --Pneumonia, likely community-acquired Patient placed on empiric IV antibiotics. We await culture results. -- Person under investigation for COVID-19 Ruled out with a negative test --Acute hypoxic respiratory failure Due to pneumonia, continue supplemental O2 and wean off as tolerated Continue antibiotic and scheduled breathing treatment -- Diabetes mellitus type II We will monitor with Accu-Cheks closely. Placed on sliding scale insulin -- HTN (hypertension) Resumed routine home medications and monitor vital signs closely. -- Morbid obesity Dietary consult placed. Lifestyle modification encouraged. -- Acute renal failure (ARF) Likely due to vasomotor nephropathy cannot rule out chronic kidney disease Patient placed on IV fluid. Consulted nephrology for evaluation -- DVT prophylaxis Patient on anticoagulation. --Full code status 10/18: Covid test came as negative, continue IV antibiotics for now. Transfer t he patient out from the Covid floor. If clinically remains stable possible discharge tomorrow. Subjective Date of service: 10/18/20 Interval history: Patient seen and examined. Medical records and medication list reviewed. No acute event overnight noted by the RN. Patient denies any chest pain, has minimal difficulty breathing on exertion. Patient is tolerating diet. Covid test came negative today Discussed plan of care at bedside with patient. Objective - Exam Narrative Exam: GENERAL: well-developed and morbidly obese -[place] male lying on bed appeared to be in no discomfort. HEENT: Normocephalic. Atraumatic. No conjunctival congestion or icterus. Patient has moist mucous membranes. NECK: Supple. Trachea midline. CHEST/LUNGS: Coarse breath sound auscultated bilaterally, breathing nonlabored. Positive few wheezes HEART/CARDIOVASCULAR: Regular in rate and rhythm. S1 and S2 positive. ABDOMEN: Abdomen is soft, nontender. Patient has normal bowel sounds. SKIN: There is no rash. Warm and dry. NEURO: No focal motor deficit. Follows command. MUSCULOSKELETAL: No joint effusion or tenderness. EXTRIMITY: No edema, no cyanosis or clubbing. PSYCH: Cooperative. - Constitutional Vitals: Vital Signs - 12hr 10/18/20 10/18/20 10/18/20 05:53 05:59 11:12 Temperature 98.4 F 98.4 F 97.9 F Pulse Rate 82 71 Respiratory 17 17 20 Rate Blood Pressure 145/77 142/67 O2 Sat by Pulse 92 96 Oximetry - Labs CBC & Chem 7: 02/20/21 05:51 10/20/20 04:52 Labs: Abnormal lab results 10/18/20 10/18/20 10/18/20 Range/Units 01:51 01:51 03:09 WBC 13.0 H (4.5-11.0) K/mm3 Hgb 10.6 L (11.8-15.2) gm/dl Hct 31.9 L (35.5-45.6) % MCV 82 L (84-94) fl MCH 27 L (28-32) pg RDW 16.6 H (13.2-15.2) % [place] % (Auto) 12.4 H (0.0-7.3) % [place] # (Auto) 1.6 H (0.0-0.8) K/mm3 Seg Neutrophils % 70.2 H (40.0-70.0) % Seg Neutrophils # 9.1 H (1.8-7.7) K/mm3 D-Dimer 545.23 H (0-234) ng/mlDDU Sodium 136 L (137-145) mmol/L BUN 24 H (9-20) mg/dL Creatinine 1.9 H (0.8-1.3) mg/dL Glucose 225 H (75-100) mg/dL POC Glucose (70-105) mg/dL Lactate Dehydrogenase (91-180) units/L C-Reactive Protein (0.00-1.30) mg/dL Albumin 3.2 L (3.9-5) g/dL 10/18/20 10/18/20 10/18/20 Range/Units 03:09 05:56 07:51 WBC (4.5-11.0) K/mm3 Hgb (11.8-15.2) gm/dl Hct (35.5-45.6) % MCV (84-94) fl MCH (28-32) pg RDW (13.2-15.2) % [place] % (Auto) (0.0-7.3) % [place] # (Auto) (0.0-0.8) K/mm3 Seg Neutrophils % (40.0-70.0) % Seg Neutrophils # (1.8-7.7) K/mm3 D-Dimer (0-234) ng/mlDDU Sodium (137-145) mmol/L BUN (9-20) mg/dL Creatinine (0.8-1.3) mg/dL Glucose 223 H (75-100) mg/dL POC Glucose 213 H 251 H (70-105) mg/dL Lactate Dehydrogenase 223 H (91-180) units/L C-Reactive Protein 31.10 H (0.00-1.30) mg/dL Albumin (3.9-5) g/dL 10/18/20 10/18/20 Range/Units 11:10 12:00 WBC (4.5-11.0) K/mm3 Hgb (11.8-15.2) gm/dl Hct (35.5-45.6) % MCV (84-94) fl MCH (28-32) pg RDW (13.2-15.2) % [place] % (Auto) (0.0-7.3) % [place] # (Auto) (0.0-0.8) K/mm3 Seg Neutrophils % (40.0-70.0) % Seg Neutrophils # (1.8-7.7) K/mm3 D-Dimer (0-234) ng/mlDDU Sodium (137-145) mmol/L BUN (9-20) mg/dL Creatinine (0.8-1.3) mg/dL Glucose (75-100) mg/dL POC Glucose 358 H (70-105) mg/dL Lactate Dehydrogenase 273 H (91-180) units/L C-Reactive Protein (0.00-1.30) mg/dL Albumin (3.9-5) g/dL
[2020-10-18] MEDS: MIRTAZAPINE 15 MG TAB PO SCH (21:42)
[2020-10-18] MEDS: cefTRIAXone/NS 2 GM/100 ML 2 GM/100 ML BAG IV SCH (21:42)
[2020-10-18] MEDS: AZITHROMYCIN 250 MG TAB PO SCH (21:43)
[2020-10-18] MEDS ORDERED: hydrALAZINE 20 MG/1 ML INJ IV PRN (23:39)
[2020-10-19 07:05] LABS: Basophils % (Auto) 0.1 % (0.0-1.8); Hemoglobin 10.4 gm/dl (11.8-15.2); Lymphocytes # (Auto) 1.2 K/mm3 (1.2-5.4); Lymphocytes % (Auto) 9.3 % (13.4-35.0); Mean Corpuscular HGB Conc 33 % (32-34); Mean Corpuscular Volume 81 fl (84-94); Monocytes % (Auto) 7.9 % (0.0-7.3); Platelet Count 340 K/mm3 (140-440); Red Blood Count 3.98 M/mm3 (3.65-5.03); Red Cell Distribution Width 16.9 % (13.2-15.2)
[2020-10-19 07:20] LABS: INR 1.33 (0.87-1.13)
[2020-10-19 07:26] LABS: Calcium 8.7 mg/dL (8.4-10.2)
[2020-10-19] MEDS: ASPIRIN EC 81 MG TAB PO SCH (09:53)
[2020-10-19] MEDS: LOSARTAN 50 MG TAB PO SCH (09:53)
[2020-10-19] MEDS: FAMOTIDINE 20 MG TAB PO SCH ×2 (09:53→22:21)
[2020-10-19] MEDS: hydroCHLOROthiazide 25 MG TAB PO SCH (09:54)
[2020-10-19] MEDS: APIXABAN 5 MG TAB PO SCH ×2 (09:54→22:21)
[2020-10-19] MEDS: amLODIPine 10 MG TAB PO SCH (09:55)
[2020-10-19] MEDS: INSULIN LISPRO 100 UNIT/ML SUB-Q SCH ×4 (09:57→22:22)
--- NOTE | 2020-10-19 10:22 | Ultrasound Report ---
ULTRASOUND RENAL INDICATION: Acute renal failure.. COMPARISON: No relevant prior imaging study available. FINDINGS: RIGHT KIDNEY: Size: 12.31 cm. Echogenicity: Normal. Cortical thickness: Normal. Stones: None. Hydronephrosis: None. Cyst or mass: None. LEFT KIDNEY: Size: 12.7 cm. Echogenicity: Normal. Cortical thickness: Normal. Stones: None. Hydronephrosis: None. Cyst or mass: None. Urinary Bladder: No significant abnormality. Free Fluid: None. Additional Findings: Prostate appears enlarged measuring approximately 6 cm in diameter. IMPRESSION 1. No acute sonographic abnormality of the kidneys. 2. Prostate appears enlarged. Signer Name: Milton Enciso MD Signed: 10/19/2020 10:17 AM Workstation Name: [id number]
[2020-10-19 10:49] LABS: Creatinine,Urine 34.1 mg/dL (0.1-20.0)
[2020-10-19 10:54] LABS: Bilirubin,Urine NEG (Negative); Blood,Urine SM (Negative); Color,Urine Straw (Yellow); Protein,Urine <15 mg/dL mg/dL (Negative); RBC,Urine < 1.0 /HPF (0.0-6.0); Urobilinogen,Urine < 2.0 mg/dL (<2.0); WBC,Urine < 1.0 /HPF (0.0-6.0)
[2020-10-19] MEDS: MAGNESIUM OXIDE 400 MG TAB PO SCH ×2 (12:29→22:21)
--- NOTE | 2020-10-19 12:55 | Progress Note ---
Assessment and Plan --Pneumonia, likely community-acquired Patient placed on empiric IV antibiotics. We await culture results. -- Person under investigation for COVID-19 Ruled out with a negative test --Acute hypoxic respiratory failure Due to pneumonia vs COPD exacerbation, continue supplemental O2 and wean off as tolerated Continue antibiotic and scheduled breathing treatment Ordered for VQ scan to rule out possible PE but patient refused the test --Acute COPD exacerbation, present on admission Continue nebs, IV antibiotics, supplemental O2 No steroid for underlying uncontrolled diabetes -- Diabetes mellitus type II, uncontrolled We will monitor with Accu-Cheks closely. Placed on sliding scale insulin -- HTN (hypertension) Resumed routine home medications and monitor vital signs closely. -- Morbid obesity Dietary consult placed. Lifestyle modification encouraged. -- Acute renal failure (ARF) Likely due to vasomotor nephropathy cannot rule out chronic kidney disease Patient placed on IV fluid. Consulted nephrology for evaluation -- DVT prophylaxis Patient on anticoagulation. --Full code status Daily Course: 10/18: Covid test came as negative, continue IV antibiotics for now. Transfer the patient out from the Covid floor. If clinically remains stable possible discharge tomorrow. 10/19: Chest x-ray shows no infiltrate, Covid test is negative. Patient has elevated D-dimer on admission will order for VQ scan. Renal function improved. Continue to follow. If VQ scan negative and renal function stable possible discharge soon. Subjective Date of service: 10/19/20 Objective - Constitutional Vitals: Vital Signs - 12hr 10/19/20 04:20 Temperature 97.4 F L Pulse Rate 69 Respiratory 18 Rate Blood Pressure 149/68 O2 Sat by Pulse 99 Oximetry - Labs CBC & Chem 7: 10/19/20 05:51 10/20/20 04:52 Labs: Abnormal lab results 10/18/20 10/18/20 10/18/20 Range/Units 10:00 15:59 22:23 WBC (4.5-11.0) K/mm3 Hgb (11.8-15.2) gm/dl Hct (35.5-45.6) % MCV (84-94) fl MCH (28-32) pg RDW (13.2-15.2) % [place] % (Auto) (13.4-35.0) % [place] % (Auto) (0.0-7.3) % [place] # (Auto) (0.0-0.8) K/mm3 Seg Neutrophils % (40.0-70.0) % Seg Neutrophils # (1.8-7.7) K/mm3 PT (12.2-14.9) Sec. INR (0.87-1.13) Sodium (137-145) mmol/L BUN (9-20) mg/dL Creatinine (0.8-1.3) mg/dL Glucose (75-100) mg/dL POC Glucose 384 H 364 H (70-105) mg/dL Magnesium (1.7-2.3) mg/dL PTH Intact (15-65) pg/mL Urine Creatinine 34.1 H (0.1-20.0) mg/dL 10/19/20 10/19/20 10/19/20 Range/Units 05:51 05:51 05:51 WBC 12.8 H (4.5-11.0) K/mm3 Hgb 10.4 L (11.8-15.2) gm/dl Hct 32.0 L (35.5-45.6) % MCV 81 L (84-94) fl MCH 26 L (28-32) pg RDW 16.9 H (13.2-15.2) % [place] % (Auto) 9.3 L (13.4-35.0) % [place] % (Auto) 7.9 H (0.0-7.3) % [place] # (Auto) 1.0 H (0.0-0.8) K/mm3 Seg Neutrophils % 82.7 H (40.0-70.0) % Seg Neutrophils # 10.6 H (1.8-7.7) K/mm3 PT 16.3 H (12.2-14.9) Sec. INR 1.33 H (0.87-1.13) Sodium 136 L (137-145) mmol/L BUN 27 H (9-20) mg/dL Creatinine 1.6 H (0.8-1.3) mg/dL Glucose 471 H (75-100) mg/dL POC Glucose (70-105) mg/dL Magnesium 1.60 L (1.7-2.3) mg/dL PTH Intact (15-65) pg/mL Urine Creatinine (0.1-20.0) mg/dL 10/19/20 Range/Units 05:51 WBC (4.5-11.0) K/mm3 Hgb (11.8-15.2) gm/dl Hct (35.5-45.6) % MCV (84-94) fl MCH (28-32) pg RDW (13.2-15.2) % [place] % (Auto) (13.4-35.0) % [place] % (Auto) (0.0-7.3) % [place] # (Auto) (0.0-0.8) K/mm3 Seg Neutrophils % (40.0-70.0) % Seg Neutrophils # (1.8-7.7) K/mm3 PT (12.2-14.9) Sec. INR (0.87-1.13) Sodium (137-145) mmol/L BUN (9-20) mg/dL Creatinine (0.8-1.3) mg/dL Glucose (75-100) mg/dL POC Glucose (70-105) mg/dL Magnesium (1.7-2.3) mg/dL PTH Intact 96.72 H (15-65) pg/mL Urine Creatinine (0.1-20.0) mg/dL
--- NOTE | 2020-10-19 13:55 | Discharge Summary ---
Providers - Providers Date of Admission: 10/18/20 03:00 Date of discharge: 10/19/20 Attending physician: MILTON VERGARA 10/18/20 04:23 Consult to Physician [CONS] Routine Comment: Consulting Provider: DEMETRIS FRY Physician Instructions: Reason For Exam: pui 10/18/20 04:39 Consult to Dietitian/Nutrition [CONS] Routine Physician Instructions: Reason For Exam: Reason for Consult: Diet education 10/18/20 05:36 Consult to Physician [CONS] Routine Comment: Consulting Provider: JONAS DENG Physician Instructions: Reason For Exam: Renal failure 10/18/20 08:37 Consult to Physician [CONS] Routine Comment: [phone]. spoke to...no answer after on hold f Consulting Provider: JONAS DENG Physician Instructions: renal failure Reason For Exam: renal failure Primary care physician: PLASTICS FABRICATOR AND ASSEMBLER Hospitalization Condition: Critical Pertinent studies: Chest x-ray, renal ultrasound Hospital course: The patient is a 64 YO male with history significant for Morbid obesity, DM type 2, Atrial fib, Arthritis, COPD, CVA without any remote focal deficit and CHF unknown EF who presented to [facility] ED 10/18 complaining of nonproductive cough, fatigue and fever for the past 2 days. Work-up in the emergency room revealed wbc of 13.0, BUN 24 and creatinine 1.9. CXR showed: Suboptimal inspiratory effort with linear bibasilar parenchymal disease likely secondary to atelectasis. Patient was admitted for possible pneumonia 2/2 Covid and acute renal failure. Patient also placed on empiric antibiotic and supplemental O2. He is Covid test came out to be negative. Nephrology was consulted for evaluation and treatment of ABHISHEK and started on IV fluid hydration. Patient was recommended for a VQ scan for elevated D-dimer but patient refused the test and wanted to go home. Patient symptom has improved clinically with medical management. Patient recommended to follow-up with search analyst outpatient with a repeat BMP following discharge. Patient was then discharged home in stable condition with outpatient follow-up. Daily Course: 10/18: Covid test came as negative, continue IV antibiotics for now. Transfer the patient out from the Covid floor. If clinically remains stable possible discharge tomorrow. 10/19: Chest x-ray shows no infiltrate, Covid test is negative. Patient has elevated D-dimer on admission, ordered for VQ scan. Renal function improved. patient refused VQ scan, he is on eliquis for chronic atrial fib. d/c home with zithromax for possible bronchitis and community-acquired pneumonia. he will f/u with his PCP. need repeat BMP in one week. Discharge diagnosis: --Pneumonia, likely community-acquired -- Person under investigation for COVID-19 Ruled out with a negative test --Acute hypoxic respiratory failure, resolved Due to pneumonia vs COPD exacerbation, Ordered for VQ scan to rule out possible PE but patient refused the test --Acute COPD exacerbation, present on admission, resolved Managed with continue nebs, IV antibiotics, supplemental O2 No steroid for underlying uncontrolled diabetes -- Diabetes mellitus type II, uncontrolled Continue home insulin regimen with Accu-Chek QA [facility] -- HTN (hypertension) Resumed routine home medications and monitored vital signs closely. -- Morbid obesity Dietary consult placed. Lifestyle modification encouraged. -- Acute renal failure (ARF), renal function was stable Likely due to vasomotor nephropathy cannot rule out chronic kidney disease Patient placed on IV fluid. Consulted nephrology for evaluation Need repeat BMP in 1 week following discharge --Atrial fibrillation, chronic Patient on Eliquis for anticoagulation, rate controlled -- DVT prophylaxis Patient on anticoagulation. --Full code status Disposition: DC-01 TO HOME OR SELFCARE Time spent for discharge: 34 minutes Core Measure Documentation - Palliative Care Palliative Care/ Comfort Measures: Not Applicable - Core Measures Any of the following diagnoses?: history only Exam - Physical Exam Narrative exam: GENERAL: well-developed and morbidly obese -[place] male lying on bed appeared to be in no discomfort. HEENT: Normocephalic. Atraumatic. No conjunctival congestion or icterus. Patient has moist mucous membranes. NECK: Supple. Trachea midline. CHEST/LUNGS: breath sound auscultated bilaterally, breathing nonlabored. no wheezes HEART/CARDIOVASCULAR: Regular in rate and rhythm. S1 and S2 positive. ABDOMEN: Abdomen is soft, nontender. Patient has normal bowel sounds. SKIN: There is no rash. Warm and dry. NEURO: No focal motor deficit. Follows command. MUSCULOSKELETAL: No joint effusion or tenderness. EXTRIMITY: No edema, no cyanosis or clubbing. PSYCH: Cooperative. - Constitutional Vitals: Temp Pulse Resp BP Pulse Ox 97.4 F L 69 18 149/68 99 10/19/20 04:20 10/19/20 04:20 10/19/20 04:20 10/19/20 04:20 10/19/20 04:20 Plan Activity: advance as tolerated Weight Bearing Status: Weight Bear as Tolerated Diet: diabetic Additional Instructions: BMP in one week. resume your home insulin regimen following discharge Follow up with: PRIMARY CAREMD [Primary Care Provider] - 3-5 Days HOANG BILLS MD [Staff Physician] - 7 Days JONAS DENG MD [Staff Physician] - 7 Days Prescriptions: Azithromycin [Zithromax TAB] 500 mg PO QHS #3 tablet
--- NOTE | 2020-10-19 15:46 | Progress Note ---
Assessment and Plan 1. Acute kidney injury: Suspect vasomotor vasomotor ABHISHEK. Renal US negative for hydro. Baseline renal function is unknown. Suspect background CKD. Monitor renal function. Avoid nephrotoxic agents. Meds dosage based on GFR. 2. FEN: Monitor volume status and lytes. 3. Resp symptoms: Admitted with dry cough. CXR negative for PNA. COVID test negative. Abx. Follow cultures. 4. H/o COPD: Monitor. 5. H/o CHF: Unknown EF. Monitor. 6. DM type 2, uncontrolled: Monitor blood glucose. 7. A.fib: Rate controlled. On Eliquis. Subjective: Patient was seen and examined at the bedside. Doing ok. Examination: General appearance: well-developed, appears stated age, obese HEENT: ATNC, Pupils equal Neck: Trachea midline Respiratory: ctab Cardiology: S1S2, no murmur Gastrointestinal: obese, normoactive bowel sounds, not tender Integumentary: warm and dry, no obvious rash Neurologic: AO, conversing moving extremities Ext: no edema Subjective Date of service: 10/19/20 Objective - Vital Signs Vital signs: Vital Signs - 12hr 10/19/20 04:20 Temperature 97.4 F L Pulse Rate 69 Respiratory 18 Rate Blood Pressure 149/68 O2 Sat by Pulse 99 Oximetry - Lab 10/19/20 05:51 10/19/20 05:51 Most recent lab results Calcium 8.7 mg/dL (8.4-10.2) 10/19/20 05:51 Magnesium 1.60 mg/dL (1.7-2.3) L 10/19/20 05:51 Urine Creatinine 34.1 mg/dL (0.1-20.0) H 10/18/20 10:00 Urine Sodium 93 mmol/L 10/18/20 10:00 Medications & Allergies - Medications Allergies/Adverse Reactions: Allergies metronidazole [From Flagyl] Allergy (Verified 01/28/14 16:16) Swelling Home Medications: Home Medications Medication Instructions Recorded Confirmed Last Taken Type Apixaban [Eliquis] 5 mg PO Q12HR #60 tablet 07/31/16 10/18/20 Unknown Rx Aspirin EC [Halfprin EC] 81 mg PO QDAY #30 tablet 07/31/16 10/18/20 Unknown Rx Famotidine [Pepcid] 20 mg PO BID #60 tablet 07/31/16 10/18/20 Unknown Rx Losartan/Hydrochlorothiazide 100 mg PO QDAY #30 tablet 07/31/16 10/18/20 Unknown Rx [Hyzaar 100-25 TAB] Mirtazapine [Remeron 15mg TAB] 15 mg PO QHS #30 tablet /10/1510/18/20 Unknown Rx Simvastatin (Nf) [Zocor TAB] 20 mg PO QHS #30 tablet 07/31/16 10/18/20 Unknown Rx amLODIPine 10 mg PO QDAY #30 tablet 07/31/16 10/18/20 Unknown Rx cloNIDine [Catapres] 0.1 mg PO QHS PRN #30 tablet 07/31/16 10/18/20 Unknown Rx metFORMIN XR [Glucophage XR] 1,000 mg PO BIDDIAB #60 tablet 07/31/16 10/18/20 Unknown Rx Azithromycin [Zithromax TAB] 500 mg PO QHS #3 tablet 10/19/20 Unknown Rx Active Medications: Generic Name Dose Route Start Last Admin Trade Name Freq PRN Reason Stop Dose Admin Acetaminophen 650 mg 10/18/20 04:38 Acetaminophen 325 Mg Tab PO Q4H PRN Pain MILD(1-3)/Fever >100.5/IBRAHIM Amlodipine Besylate 10 mg 10/18/20 10:00 10/19/20 09:55 Amlodipine 10 Mg Tab PO 10 mg QDAY DILLAN Administration Apixaban 5 mg 10/18/20 10:00 10/19/20 09:54 Apixaban 5 Mg Tab PO 5 mg Q12HR DILLAN Administration Protocol Aspirin 81 mg 10/18/20 10:00 10/19/20 09:53 Aspirin Ec 81 Mg Tab PO 81 mg QDAY DILLAN Administration Azithromycin 500 mg 10/18/20 22:00 10/18/20 21:43 Azithromycin 250 Mg Tab PO 10/21/20 22:01 500 mg QHS DILLAN Administration Clonidine HCl 0.1 mg 10/18/20 05:32 Clonidine 0.1 Mg Tab PO QHS PRN Hypertension Dextrose 0 ml 10/18/20 04:38 Dextrose 50% In Water (25gm) 50 Ml Syringe IV Q30MIN PRN Hypoglycemia Protocol Famotidine 20 mg 10/18/20 10:00 10/19/20 09:53 Famotidine 20 Mg Tab PO 20 mg BID DILLAN Administration Hydralazine HCl 5 mg 10/18/20 23:39 Hydralazine 20 Mg/1 Ml Inj IV Q6H PRN Blood Pressure Hydrochlorothiazide 25 mg 10/18/20 10:00 10/19/20 09:54 Hydrochlorothiazide 25 Mg Tab PO 25 mg QDAY DILLAN Administration Sodium Chloride 1,000 mls @ 75 mls/hr 10/18/20 04:45 10/19/20 00:43 Nacl 0.9% 1000 Ml IV 75 mls/hr DIRECT DILLAN Administration Ceftriaxone Sodium 2 gm in 100 mls @ 200 mls/hr 10/18/20 22:00 10/18/20 21:42 Rocephin/Ns 2 Gm/100 Ml IV 200 mls/hr Q24HR@2200 DILLAN Administration Protocol Insulin Human Lispro 0 unit 10/18/20 07:30 10/19/20 12:26 Insulin Lispro 100 Unit/Ml SUB-Q 8 unit ACHS DILLAN Administration Protocol Losartan Potassium 100 mg 10/18/20 10:00 10/19/20 09:53 Losartan 50 Mg Tab PO 100 mg QDAY DILLAN Administration Magnesium Hydroxide 30 ml 10/18/20 04:38 Magnesium Hydroxide (Mom) Oral Liqd Udc PO Q4H PRN Constipation Magnesium Oxide 400 mg 10/19/20 11:00 10/19/20 12:29 Magnesium Oxide 400 Mg Tab PO 400 mg BID DILLAN Administration Mirtazapine 15 mg 10/18/20 22:00 10/18/20 21:42 Mirtazapine 15 Mg Tab PO 15 mg QHS DILLAN Administration Morphine Sulfate 2 mg 10/18/20 04:38 Morphine 2 Mg/1 Ml Inj IV Q4H PRN Pain, Moderate (4-6) Ondansetron HCl 4 mg 10/18/20 04:38 Ondansetron 4 Mg/2 Ml Inj IV Q8H PRN Nausea And Vomiting Pravastatin Sodium 40 mg 10/19/20 22:00 Pravastatin 40 Mg Tab PO QHS DILLAN Sodium Chloride 10 ml 10/18/20 10:00 10/19/20 09:56 Sodium Chloride 0.9% 10 Ml Flush Syringe IV 10 ml BID DILLAN Administration Sodium Chloride 10 ml 10/18/20 04:38 Sodium Chloride 0.9% 10 Ml Flush Syringe IV PRN PRN LINE FLUSH
[2020-10-19] MEDS ORDERED: PRAVASTATIN 40 MG TAB PO SCH (22:00)
[2020-10-19] MEDS ORDERED: NON-FORMULARY EACH (Simvastatin (Nf) 20 MG Tablet) PO SCH (22:00)
[2020-10-19] MEDS ORDERED: INSULIN GLARGINE 100 UNITS/ML SUB-Q SCH (22:00)
[2020-10-19] MEDS: AZITHROMYCIN 250 MG TAB PO SCH (22:21)
[2020-10-19] MEDS: MIRTAZAPINE 15 MG TAB PO SCH (22:21)
[2020-10-19] MEDS: cefTRIAXone/NS 2 GM/100 ML 2 GM/100 ML BAG IV SCH (22:49)
[2020-10-20 05:51] LABS: Calcium 9.3 mg/dL (8.4-10.2)
[2020-10-20] MEDS ORDERED: INSULIN REGULAR, HUMAN 100 UNITS/1 ML SUB-Q SCH (07:30)
[2020-10-20] MEDS: INSULIN LISPRO 100 UNIT/ML SUB-Q SCH (08:05)
[2020-10-20] MEDS: amLODIPine 10 MG TAB PO SCH (09:15)
[2020-10-20] MEDS: LOSARTAN 50 MG TAB PO SCH (09:16)
[2020-10-20] MEDS: hydroCHLOROthiazide 25 MG TAB PO SCH (09:16)
[2020-10-20] MEDS: ASPIRIN EC 81 MG TAB PO SCH (09:16)
[2020-10-20] MEDS: FAMOTIDINE 20 MG TAB PO SCH (09:16)
[2020-10-20] MEDS: APIXABAN 5 MG TAB PO SCH (09:16)
[2020-10-20 09:18] VITALS: BP 152/81
[2020-10-20] MEDS: MAGNESIUM OXIDE 400 MG TAB PO SCH (09:19)
--- NOTE | 2020-10-20 14:57 | Event Note ---
Date: 10/20/20 Patient had BG above 400 yesterday, readjusted insulin dose patient clinically stable for discharge today
== END 2020-10-20 11:05 | disposition home or self-care (01) ==
LOC: ED 00:42 → 3A 03:00 → 4A 10-19 00:32
PROVIDERS: ADMIT Internal Medicine Geriatric Medicine; ATTEND Internal Medicine
DX: J96.01 Acute respiratory failure with hypoxia (principal); Z20.822 Contact with and (suspected) exposure to COVID-19; J18.9 Pneumonia, unspecified organism; N17.9 Acute kidney failure, unspecified; I10 Essential (primary) hypertension; J44.1 Chronic obstructive pulmonary disease with (acute) exacerbation; E11.42 Type 2 diabetes mellitus with diabetic polyneuropathy; E66.09 Other obesity due to excess calories; I48.91 Unspecified atrial fibrillation; M19.90 Unspecified osteoarthritis, unspecified site; G47.33 Obstructive sleep apnea (adult) (pediatric); D72.829 Elevated white blood cell count, unspecified; Z86.73 Personal history of transient ischemic attack (TIA), and cerebral infarction without residual deficits; Z98.890 Other specified postprocedural states; Z79.4 Long term (current) use of insulin; Z79.82 Long term (current) use of aspirin; Z68.41 Body mass index [BMI] 40.0-44.9, adult
CPT/HCPCS: 36415; 71045; 76770; 80048; 80053; 81001; 82570; 82728; 82947; 82962; 83615; 83735; 83970; 84145; 84300; 85025; 85379; 85610; 86140; 93005; 96361; 96365; 96366; 96368; 96375; 99291; A9270; G0378; J0456; J0696; J1100; J7030; J7040; U0003; J1815